=== PATIENT | male | born 1945 | race Caucasian/White ===

== ENCOUNTER 2018-12-16 08:26 | Inpatient (IN) | payer MEDICARE, OTHER ==
[~2018-12-16] VITALS: Ht 172.7 cm; Wt 76.6 kg
[2018-12-16] VITALS (9 sets, daily range): BP systolic 124–163; BP diastolic 56–80
[2018-12-16] MEDS ORDERED: aspirin 325mg tablet PO ONE (08:35)
[2018-12-16] MEDS ORDERED: LEVO25TA2 PO (08:43)
[2018-12-16] MEDS ORDERED: ASPI-257 PO (08:43)
[2018-12-16] MEDS ORDERED: ATOR80TA PO (08:43)
[2018-12-16] MEDS ORDERED: fentaNYL/PF 50MCG/1 ML 2ML syringe IV ONE (08:45)
--- NOTE | 2018-12-16 08:55 | NUR ---
PT GIVEN FENTANYL, RESTING COMFORTABLE, AT BS, NO NEEDS AT THIS TIME
[2018-12-16 09:02] LABS: BASOPHILS # (AUTO) 0.1 X10'3 (0-0.2); BASOPHILS % (AUTO) 0.6 % (0-1); EOSINOPHILS # (AUTO) 0.2 X10'3 (0-0.9); EOSINOPHILS % (AUTO) 2.2 % (0-6); HEMATOCRIT 43.1 % (42.0-52.0); HEMOGLOBIN 14.7 g/dl (14.0-17.9); LYMPHOCYTES # (AUTO) 2.6 X10'3 (1.1-4.8); LYMPHOCYTES % (AUTO) 26.8 % (21-51); MEAN CORPUSCULAR HEMOGLOBIN 32.1 PG (27.0-31.0); MEAN CORPUSCULAR VOLUME 94.4 FL (78-98); MEAN PLATELET VOLUME 7.8 FL (7.4-10.4); MONOCYTES # (AUTO) 0.8 X10'3 (0-0.9); MONOCYTES % (AUTO) 8.9 % (2-12); NEUTROPHILS # (AUTO) 5.9 X10'3 (1.8-7.7); NEUTROPHILS % (AUTO) 61.5 % (42-75); PLATELET COUNT 263 X10'3 (140-440); RED BLOOD COUNT 4.57 X10'6 (4.70-6.10); RED CELL DISTRIBUTION WIDTH 12.9 % (11.5-14.5); WHITE BLOOD COUNT 9.5 X10'3 (4.5-11.0)
[2018-12-16 09:04] LABS: ALANINE AMINOTRANSFERASE 33 U/L (12-78); ALBUMIN/GLOBULIN RATIO 1.3 (1.1-1.5); ALKALINE PHOSPHATASE 76 IU/L (46-116); ANION GAP 9 (8-16); ASPARTATE AMINO TRANSFERASE 21 U/L (10-37); BILIRUBIN,TOTAL 0.7 MG/DL (0.1-1.0); BLOOD UREA NITROGEN 13 MG/DL (7-18); BUN/CREATININE RATIO 12.1 (5.4-32.0); CALCIUM 9.1 MG/DL (8.5-10.1); CHLORIDE 106 MMOL/L (99-107); CREATININE 1.07 MG/DL (0.60-1.10); GLUCOSE 116 MG/DL (70-104); PARTIAL THROMBOPLASTIN TIME 24 SECONDS (22-32); POTASSIUM 3.6 MMOL/L (3.5-5.1); SODIUM 143 MMOL/L (135-145); TOTAL CARBON DIOXIDE 28.2 MMOL/L (24-32); TOTAL PROTEIN 7.1 G/DL (6.4-8.2); eGFR 68 ML/MIN
[2018-12-16] MEDS ORDERED: ondansetron/PF 4mg/2ml inj IV PRN (09:20)
[2018-12-16] MEDS ORDERED: magnesium hydroxide 30ml (MOM) UD suspension PO PRN ×2 (09:20→13:45)
[2018-12-16] MEDS ORDERED: mag hydrox/Alum hydrox/simeth 30ml oral suspension PO PRN (09:20)
[2018-12-16] MEDS ORDERED: acetaminophen 325mg tablet PO PRN ×2 (09:20→13:45)
[2018-12-16] MEDS: normal saline 1000ml 1,000 ML IV SCH ×3 (09:24→21:36)
[2018-12-16] MEDS: morphine 2 MG/ML inj. syringe IV PRN ×2 (10:36→21:54)
[2018-12-16] MEDS ORDERED: morphine 2 MG/ML inj. syringe IV ONE ×2 (10:45→10:50)
[2018-12-16] MEDS ORDERED: heparin 10,000 units/1 ML INJ IV ONE (10:50)
[2018-12-16] MEDS ORDERED: heparin 10,000 units/1 ML INJ IV PRN (10:50)
[2018-12-16] MEDS ORDERED: heparin 25,000 UNIT/250ml bag 250 ML IV SCH (10:50)
[2018-12-16] MEDS ORDERED: nitroGLYCERIN-Tridil 50MG/D5W 250 ML IV PRN (10:52)
[2018-12-16] MEDS ORDERED: tirofiban 5mg in NS 100mL 100 ML IV SCH (11:00)
--- NOTE | 2018-12-16 11:18 | NUR ---
Diazo Technician and case liner at bedside to assess pt. Verbal order given for NTG x2 q5min SL.
[2018-12-16] MEDS: nitroGLYCERIN 0.4mg SUBLingual tab SL PRN ×3 (11:20→11:31)
[2018-12-16] MEDS ORDERED: midazolam 2 mg/2 ml injection ONE (11:25)
[2018-12-16] MEDS ORDERED: iohexol 350 MG/1 ML 200ml bottle ONE (11:25)
[2018-12-16] MEDS ORDERED: iohexol 350 MG/ML 50ML vial IV ONE (11:25)
[2018-12-16] MEDS ORDERED: heparin 1,000unit/ml 10ml vial 10 ML ONE (11:25)
[2018-12-16] MEDS ORDERED: nitroGLYCERIN-Tridil 50MG/D5W 250 ML IV ONE (11:25)
[2018-12-16] MEDS ORDERED: fentaNYL/PF 50MCG/1 ML 2ML syringe ONE (11:25)
[2018-12-16] MEDS ORDERED: LIDOcaine 1% (10mg/ml)w/preservative injection 20ml MDV ONE (11:25)
[2018-12-16] MEDS: tirofiban 12.5mg in NS 250mL 250 ML IV SCH (11:30)
--- NOTE | 2018-12-16 11:45 | NUR ---
Pt transported to semiconductor lab technician by semiconductor lab technician nurse.
[2018-12-16] MEDS ORDERED: ticagrelor 90mg tablet ONE (12:36)
[2018-12-16] MEDS ORDERED: aspirin 81mg tab.chew PO ONE (13:40)
[2018-12-16] MEDS ORDERED: ticagrelor 90mg tablet PO ONE (13:40)
[2018-12-16] MEDS ORDERED: normal saline 1000ml 1,000 ML IV ONE (13:40)
[2018-12-16] MEDS ORDERED: HYDROcodone/acetaminophen 10/325mg tab PO PRN ×2 (13:45)
[2018-12-16] MEDS ORDERED: OXAZEpam 15mg capsule PO PRN (13:45)
[2018-12-16] MEDS ORDERED: cyclobenzaprine 10mg tablet PO PRN (13:45)
--- NOTE | 2018-12-16 18:28 | NUR ---
Patient in room CICU 2011. I have received report from DILIP Ellis and had the opportunity to ask questions and assume patient care.
--- NOTE | 2018-12-16 18:32 | NUR ---
Problems reprioritized. Patient report given, questions answered & plan of care reviewed with DILIP Marshall. Patient currently resting in bed, bed locked and low, call light in reach, VSS at shift change.
[2018-12-16] MEDS: docusate sod 100mg capsule PO SCH (20:12)
[2018-12-16] MEDS: heparin, porcine 5000 units/ml vial SQ SCH (20:12)
--- NOTE | 2018-12-16 21:22 | NUR ---
Patient complaining of 4/10 chest pain. Nitroglycerin drip increased. EKG done and read by MD Jose in ER and has reported that there no EKG findings worth noting. Will continue to monitor for increased pain and/or rhythm changes.
--- NOTE | 2018-12-16 21:45 | NUR ---
March Adalberto, AUTOMOTIVE SERVICE TECHNICIAN notified of patient's CP and that no significant findings were found in EKG per ER doc. Aware that patient is on a nitroglycerin drip and will be given morphine. No new orders noted at this time.
[2018-12-17] VITALS (18 sets, daily range): BP systolic 104–151; BP diastolic 51–75
[2018-12-17] MEDS: tirofiban 12.5mg in NS 250mL 250 ML IV SCH (03:13)
[2018-12-17 04:48] LABS: BASOPHILS % (AUTO) 0.1 % (0-1); EOSINOPHILS % (AUTO) 0.1 % (0-6); HEMATOCRIT 36.7 % (42.0-52.0); HEMOGLOBIN 12.5 g/dl (14.0-17.9); LYMPHOCYTES # (AUTO) 1.2 X10'3 (1.1-4.8); LYMPHOCYTES % (AUTO) 8.6 % (21-51); MEAN PLATELET VOLUME 7.3 FL (7.4-10.4); MONOCYTES # (AUTO) 1.2 X10'3 (0-0.9); MONOCYTES % (AUTO) 8.1 % (2-12); NEUTROPHILS # (AUTO) 11.9 X10'3 (1.8-7.7); NEUTROPHILS % (AUTO) 83.1 % (42-75); PLATELET COUNT 236 X10'3 (140-440); RED CELL DISTRIBUTION WIDTH 12.9 % (11.5-14.5); WHITE BLOOD COUNT 14.3 X10'3 (4.5-11.0)
[2018-12-17 05:00] LABS: ALBUMIN 3.2 G/DL (3.4-5.0); ANION GAP 6 (8-16); BLOOD UREA NITROGEN 13 MG/DL (7-18); BUN/CREATININE RATIO 14.4 (5.4-32.0); CALCIUM 7.9 MG/DL (8.5-10.1); CHLORIDE 107 MMOL/L (99-107); CHOL/HDL RATIO 2.8 (0.00-4.99); CHOLESTEROL 112 MG/DL (0-200); GLUCOSE 137 MG/DL (70-104); HDL CHOLESTEROL 40 MG/DL (35-60); LDL CHOLESTEROL 56 MG/DL (50-100); POTASSIUM 3.6 MMOL/L (3.5-5.1); SODIUM 140 MMOL/L (135-145); TOTAL CARBON DIOXIDE 27.3 MMOL/L (24-32); TRIGLYCERIDES 83 MG/DL (20-135); eGFR 83 ML/MIN
--- NOTE | 2018-12-17 06:13 | NUR ---
Problems reprioritized. Patient report given, questions answered & plan of care reviewed with DILIP Klein.
--- NOTE | 2018-12-17 06:30 | NUR ---
Patient in room CICU 2012. I have received report from DILIP Marshall and had the opportunity to ask questions and assume patient care.
[2018-12-17] MEDS ORDERED: atorvastatin 20mg tablet PO SCH (08:00)
--- NOTE | 2018-12-17 08:00 | NUR ---
Aggrastat infusion stopped.
[2018-12-17] MEDS: ticagrelor 90mg tablet PO SCH ×2 (08:20→20:53)
[2018-12-17] MEDS: heparin, porcine 5000 units/ml vial SQ SCH ×2 (08:20→20:00)
[2018-12-17] MEDS: docusate sod 100mg capsule PO SCH ×2 (08:21→20:52)
[2018-12-17] MEDS: lisinopril 5mg tablet PO SCH (08:21)
[2018-12-17] MEDS: metoprolol succinate 25mg (24-HOUR) SR. Tablet PO SCH (08:21)
[2018-12-17] MEDS ORDERED: aspirin 325mg tablet PO SCH (08:30)
--- NOTE | 2018-12-17 11:36 | NUR ---
Dr. Suárez rounded on pt.
--- NOTE | 2018-12-17 13:36 | NUR ---
Dr. Sindhu washington Received order for EKG in AM
--- NOTE | 2018-12-17 13:45 | NUR ---
Pt walked 200 feet, slightly unstable gait. Pt remained in Sinus rhythm, denied feeling dizzy, BP stable. Flatus noted.
--- NOTE | 2018-12-17 15:00 | NUR ---
Report called to [facility] unit RN.
--- NOTE | 2018-12-17 15:15 | NUR ---
Pt transferred to [facility] unit bed 316A. Pt belongings at bedside, pt's Spouse accompanying. Spoke with receiving nurse DILIP Bacon.
--- NOTE | 2018-12-17 15:30 | NUR ---
RECEIVED PATIENT AND REPORT. PATIENT PLACED IN ROOM 316. HOB UP CALL LIGHT IN REACH. PATIENTS AT HIS SIDE. NO C/O AT THIS TIME. Addendum: 12/17/18 at 1532 by Fern Mackey RN Amended: Links added.
--- NOTE | 2018-12-17 18:15 | NUR ---
Patient in room MED 316. I have received report from DILIP Bacon and had the opportunity to ask questions and assume patient care.
--- NOTE | 2018-12-17 20:38 | NUR ---
Called Dr. Manley's answering service regarding medication clarification. this patient is on Brilinta and low dose 81 mg ASA. There is also order for Heparin 5000 units BID. this order was put in by Dr. Pop on 12/16/18 in the am. confirming that this patient needs to continue with this med. Per Dr. Manley, patient no longer needs the subcut heparin. Will discontinue this med and non-admin for this patient,
[2018-12-17] MEDS ORDERED: aspirin 81mg tablet.DR PO SCH (21:00)
[2018-12-18 02:00] VITALS: BP 108/57
[2018-12-18 05:26] LABS: BASOPHILS % (AUTO) 0.1 % (0-1); EOSINOPHILS # (AUTO) 0.1 X10'3 (0-0.9); EOSINOPHILS % (AUTO) 1.5 % (0-6); HEMATOCRIT 36.1 % (42.0-52.0); HEMOGLOBIN 12.6 g/dl (14.0-17.9); LYMPHOCYTES # (AUTO) 1.7 X10'3 (1.1-4.8); LYMPHOCYTES % (AUTO) 17.7 % (21-51); MEAN CORPUSCULAR HEMOGLOBIN 32.6 PG (27.0-31.0); MEAN CORPUSCULAR HGB CONC 34.9 g/dL (33.0-36.5); MEAN CORPUSCULAR VOLUME 93.4 FL (78-98); MEAN PLATELET VOLUME 7.5 FL (7.4-10.4); MONOCYTES # (AUTO) 0.9 X10'3 (0-0.9); NEUTROPHILS # (AUTO) 6.6 X10'3 (1.8-7.7); NEUTROPHILS % (AUTO) 70.7 % (42-75); PLATELET COUNT 232 X10'3 (140-440); RED BLOOD COUNT 3.86 X10'6 (4.70-6.10); RED CELL DISTRIBUTION WIDTH 13.1 % (11.5-14.5); WHITE BLOOD COUNT 9.3 X10'3 (4.5-11.0)
[2018-12-18 05:30] LABS: ALANINE AMINOTRANSFERASE 26 U/L (12-78); ALBUMIN/GLOBULIN RATIO 1.2 (1.1-1.5); ALKALINE PHOSPHATASE 52 IU/L (46-116); ANION GAP 7 (8-16); ASPARTATE AMINO TRANSFERASE 29 U/L (10-37); BILIRUBIN,TOTAL 0.9 MG/DL (0.1-1.0); BLOOD UREA NITROGEN 11 MG/DL (7-18); BUN/CREATININE RATIO 13.4 (5.4-32.0); CALCIUM 8.3 MG/DL (8.5-10.1); CHLORIDE 108 MMOL/L (99-107); CREATININE 0.82 MG/DL (0.60-1.10); GLUCOSE 99 MG/DL (70-104); POTASSIUM 3.6 MMOL/L (3.5-5.1); SODIUM 143 MMOL/L (135-145); TOTAL CARBON DIOXIDE 28.2 MMOL/L (24-32); TOTAL PROTEIN 5.6 G/DL (6.4-8.2); eGFR > 90 ML/MIN
[2018-12-18 06:00] VITALS: BP 121/59
--- NOTE | 2018-12-18 06:17 | NUR ---
Problems reprioritized. Patient report given, questions answered & plan of care reviewed with DILIP Ordaz.
--- NOTE | 2018-12-18 06:59 | NUR ---
Patient in room MED 316. I have received report from DILIP Vickers and had the opportunity to ask questions and assume patient care.
[2018-12-18] MEDS: ticagrelor 90mg tablet PO SCH (07:39)
[2018-12-18] MEDS: lisinopril 5mg tablet PO SCH (07:39)
[2018-12-18] MEDS: metoprolol succinate 25mg (24-HOUR) SR. Tablet PO SCH (07:39)
[2018-12-18] MEDS: docusate sod 100mg capsule PO SCH (07:40)
[2018-12-18] MEDS ORDERED: levoTHYROXINE 25mcg tablet PO SCH (08:00)
[2018-12-18] MEDS ORDERED: METO-395 PO (09:11)
[2018-12-18] MEDS ORDERED: LISI-642 PO (09:11)
[2018-12-18] MEDS ORDERED: TICA90TA PO (09:11)
[2018-12-18 11:00] VITALS: BP 107/63
--- NOTE | 2018-12-18 12:36 | NUR ---
pt. discharged from facility at 1230. pt. was wheeled down to lobby by staff to private vehicle. paperwork was explained, understood and signed. meds called [address] [facility] on [address] IV was d/c intact. pt. took all belongings home.
--- NOTE | 2018-12-18 12:57 | NUR ---
Orienteer documentation: I have reviewed and agree with all interventions, assessments performed and documented by Gwen CHERRY.
[2018-12-18] MEDS ORDERED: atorvastatin 20mg tablet PO SCH (21:00)
== END 2018-12-18 12:30 | disposition home health service (06) | DRG 247 ==
LOC: ER 08:28 → CANBEDREQ 11:20 → PCU 3S 12:37 → CICU 2S 13:20 → MED 3N 12-17 15:00
PROVIDERS: ADMIT Family Medicine; ATTEND Family Medicine
PROC: 4A023N7 Measurement of Cardiac Sampling and Pressure, Left Heart, Percutaneous Approach (ICD-10-PCS; principal; 2018-12-16)
PROC: 027034Z Dilation of Coronary Artery, One Artery with Drug-eluting Intraluminal Device, Percutaneous Approach (ICD-10-PCS; 2018-12-16)
PROC: B2111ZZ Fluoroscopy of Multiple Coronary Arteries using Low Osmolar Contrast (ICD-10-PCS; 2018-12-16)
PROC: B2151ZZ Fluoroscopy of Left Heart using Low Osmolar Contrast (ICD-10-PCS; 2018-12-16)
DX: I21.3 ST elevation (STEMI) myocardial infarction of unspecified site (principal); I25.10 Atherosclerotic heart disease of native coronary artery without angina pectoris; I10 Essential (primary) hypertension; E03.9 Hypothyroidism, unspecified; E78.5 Hyperlipidemia, unspecified; Z95.5 Presence of coronary angioplasty implant and graft; Z79.899 Other long term (current) drug therapy; Z79.82 Long term (current) use of aspirin
CPT/HCPCS: 93306; 93458; 96365; 96375; 99285; C9600; 36415; 71045; 80048; 80053; 80061; 84443; 84484; 85025; 85347; 85610; 85730; 87081; 93005; 99152; 99153; A6258; C1725; C1769; C1874; G0378; J1644; J2001; J2250; J2270; J2405; J3010; J3246; J3490; J7030; J7040; Q9967

== ENCOUNTER → 2023-07-11 | Outpatient (CLI) | payer OTHER ==
[~2023-07-11] MED LIST: ASPI-257 PO; ATOR80TA PO; LEVO25TA2 PO; LISI-642 PO; METO-395 PO; TICA90TA PO
[2023-07-11 10:31] LABS: FREE T4 (FREE THYROXINE) 0.99 NG/DL (0.73-1.40); THYROID STIMULATING HORMONE 2.14 ulU/ml (0.34-4.50)
== END | disposition home or self-care (01) ==
LOC: CARD DIAG 08:53
PROVIDERS: ATTEND Chiropractor
DX: I08.0 Rheumatic disorders of both mitral and aortic valves (principal); E03.9 Hypothyroidism, unspecified; I70.90 Unspecified atherosclerosis; I10 Essential (primary) hypertension
CPT/HCPCS: 36415; 84439; 84443; 84481; 93306